=== PATIENT | female | born 1965 | race Caucasian/White ===

== ENCOUNTER 2021-08-14 20:32 | Emergency (ER) | payer MEDICAID ==
[~2021-08-14] VITALS: Ht 165.1 cm; Wt 82.0 kg
[2021-08-14 23:45] VITALS: BP 117/77
[2021-08-14 23:45] LABS: BASOPHILS % 0.4 % (0.0-2.0); EOSINOPHILS % 1.4 % (0.0-5.0); HEMATOCRIT. 38.9 % (36.0-48.0); LYMPHOCYTES % 48.1 % (20.0-50.0); MEAN CORPUSCULAR VOLUME 93.6 fL (81.0-99.0); MONOCYTES % 7.8 % (2.0-8.0); NEUTROPHILS % 42.3 % (40.0-76.0); PLATELET 122 x1000/uL (130-400); RED BLOOD CELL COUNT 4.15 mill/uL (4.2-5.4); RED CELL DISTRIBUTION WIDTH 13.1 % (11.6-14.6)
[2021-08-14 23:52] LABS: CHLORIDE 94 mEq/L (98-107)
[2021-08-15 00:37] LABS: HEMOGLOBIN. 13.5 g/dL (12.0-16.0)
[2021-08-15 00:38] LABS: MEAN CORPUSCULAR HEMOGLOBIN 32.5 pg (28.0-32.0)
[2021-08-15 01:06] LABS: ETHANOL BLOOD 228 mg/dL
== END 2021-08-15 01:59 | disposition left against medical advice (07) ==
LOC: ER 20:32
DX: F20.9 Schizophrenia, unspecified (principal); F31.9 Bipolar disorder, unspecified; E11.9 Type 2 diabetes mellitus without complications; E78.00 Pure hypercholesterolemia, unspecified; I10 Essential (primary) hypertension; Z88.0 Allergy status to penicillin
CPT/HCPCS: 36415; 80053; 80307; 80320; 80329; 82962; 85025; 93005; 99284; G0480